=== PATIENT | female | born 1980 | race Native Hawaiian/Other Pacific Islander ===

== ENCOUNTER 2021-03-06 21:39 | Emergency (ER) | payer OTHER ==
[~2021-03-06] VITALS: Ht 175.3 cm; Wt 60.8 kg
[2021-03-06 22:34] VITALS: BP 122/76; TEMP 98.3
== END 2021-03-06 22:34 | disposition home or self-care (01) ==
LOC: ED 21:39
DX: T63.301A Toxic effect of unspecified spider venom, accidental (unintentional), initial encounter (principal); R22.31 Localized swelling, mass and lump, right upper limb; X58.XXXA Exposure to other specified factors, initial encounter; Y92.89 Other specified places as the place of occurrence of the external cause
CPT/HCPCS: 96372; 99283; J0696; J1885

== ENCOUNTER 2021-11-04 19:48 | Emergency (ER) | payer OTHER ==
[~2021-11-04] VITALS: Ht 175.3 cm; Wt 63.5 kg
[2021-11-04 19:48] VITALS: TEMP 98.3
[2021-11-04 20:13] LABS: PLATELET COUNT 396 K/uL (152-353)
[2021-11-04 20:22] LABS: POTASSIUM 3.2 mmol/L (3.6-5.2)
[2021-11-04 21:50] VITALS: BP 141/87
== END 2021-11-04 21:50 | disposition home or self-care (01) ==
LOC: ED 19:48
PROVIDERS: Emergency Medicine Emergency Medical Services
DX: R10.32 Left lower quadrant pain (principal)
CPT/HCPCS: 80053; 80307; 81002; 81025; 85027; 96360; 96374; 99284; J1885

== ENCOUNTER 2021-11-09 09:35 | Emergency (ER) | payer OTHER ==
[~2021-11-09] VITALS: Ht 175.3 cm; Wt 59.0 kg
[2021-11-09 09:40] VITALS: BP 109/69; TEMP 97.2
== END 2021-11-09 11:00 | disposition home or self-care (01) ==
LOC: ED 09:35
DX: Z53.21 Procedure and treatment not carried out due to patient leaving prior to being seen by health care provider (principal)
CPT/HCPCS: 99281